=== PATIENT | female | born 1980 | race Hispanic/Latino ===

== ENCOUNTER 2017-03-15 11:57 | Emergency (ER) | payer MEDICAID ==
[2017-03-15 12:07] VITALS: BP 135/82
[2017-03-15] MEDS ORDERED: ORPHENADRINE CITRATE 30 MG/ML VIAL IM ONE (12:20)
[2017-03-15] MEDS ORDERED: KETOROLAC TROMETHAMINE 30 MG/ML VIAL IM ONE (12:20)
[2017-03-15] MEDS ORDERED: ORPHENADRINE CITRATE 30 MG/ML VIAL ONE (12:26)
[2017-03-15] MEDS ORDERED: KETOROLAC TROMETHAMINE 30 MG/ML VIAL ONE (12:26)
--- NOTE | 2017-03-15 12:27 | ERNOTE ---
Back Pain ER HPI Date of Service: 03/15/17 Presenting Symptoms: injury/pain to back Time Seen by Provider: 03/15/17 12:15 Source: patient Exam Limitations: no limitations Immunizations: IMMUNIZATION HX Immunizations Up to Date Yes History of Influenza Vaccine Yes Hx Pneumococcal Vaccination No Allergies/Adverse Reactions: Allergies No Known Allergies Allergy (Verified 03/15/17 12:06) Home Medications: HOME MEDICATIONS Etonogestrel/Ethinyl Estradiol [Nuvaring Vaginal Ring] 1 each VG ONCE 01/16/16 [ Last Taken Unknown] Cyclobenzaprine HCl [Flexeril] 10 mg PO TID PRN #30 tab 03/15/17 [Last Taken Unknown] Naproxen [Naprosyn] 500 mg PO BID PRN #60 tab 03/15/17 [Last Taken Unknown] Narrative: Pt. comes in with c/o low back pain for two weeks after she was stretching and felt a pull in her back. Pt. denies any SOB, CP, NVD, fever, recent illness, alleviating factors despite taking Ibuprofen and tylenol for pain. Pt. staes taht she had one episode of numbness for a minute after she twisted to roll onto her R side a few nights ago but denies any since. Review of Systems - Review of Systems Constitutional: Present: no symptoms reported. Absent: recent illness, fever, chills, weakness, fatigue, malaise EYE: Present: no symptoms reported ENT: Present: no symptoms reported Respiratory: Present: no symptoms reported. Absent: shortness of breath, cough , wheezing Cardiology: Present: no symptoms reported. Absent: chest pain, palpitations, edema Gastrointestinal/Abdominal: Present: no symptoms reported. Absent: nausea, vomiting, diarrhea Genitourinary: Present: no symptoms reported Musculoskeletal: Present: back pain - L5/S1 paraspinous, muscle pain - B paraspinous muscle. Absent: neck pain, joint pain, joint swelling Skin: Present: no symptoms reported Neurological: Present: no symptoms reported. Absent: headache, dizziness/light- headedness, numbness, tingling All Other Systems: All systems neg except as marked - Patient's Past Medical History Patient History - Medical: Anemia Patient History - Cardiac/Respiratory: No pertinent hx Patient History - Cancer: No Hx of Cancer Patient History - Surgical Procedures: Other Patient History - Other: None - Family History Mother Family History - Medical: No pertinent hx Family History - Cardiac/Respiratory: No pertinent hx Father Family History - Medical: No pertinent hx Family History - Cardiac/Respiratory: No pertinent hx - Social History Abuse History: No History of abuse Psych History: No pertinent hx Smoking Status: Never smoker Have you smoked in the past 12 months: No - Immunizations Immunizations Up to Date: Yes Hx Pneumococcal Vaccination: No History of Influenza Vaccine: Yes Physical Exam - Physical Exam General Appearance: Present: wd/wn, alert, no apparent distress Head Exam: Present: normal inspection, no evidence of injury Eye Exam: Normal inspection: bilateral, PERRL: bilateral, EOMI: bilateral Ears, Nose, Throat: Present: normal ENT inspection, normal pharynx Neck: Present: normal inspection, nontender. Absent: lymphadenopathy (R), lymphadenopathy (L) Respiratory: Present: no respiratory distress, normal breath sounds, no accessory muscle use, chest nontender, lungs clear Cardiovascular/Chest: Present: regular rate, rhythm, no murmur, normal peripheral pulses Back Exam: Present: normal range of motion, no CVA tenderness, no vertebral tenderness, decreased range of motion, muscle spasm - B paraspinous near L3-S1 Extremity Exam: Present: normal inspection, non-tender, normal range of motion, no edema Neurological Exam: Present: alert, oriented, normal mood/affect, no motor/ sensory deficits Skin Exam: Present: normal color, warm/dry. Absent: pallor, skin rash ED Progress - Vital Signs Patient's Vital Signs:: I have reviewed the patient's vital signs. Vital Signs: Vital Signs 03/15/17 12:03 Temperature 36.5 C Pulse Rate 105 H Respiratory 14 Rate Blood Pressure 135/82 O2 Sat by Pulse 97 Oximetry - X-Ray X-Ray #1 X-Ray: lumbosacral Interpretation: Reviewed by me X-ray Comments: L3-L5 degenerative disk disease - Progress/Reassessment Chief Complaint: Back Pain Progress:: Improved Departure Clinical Impression: Degenerative disk disease Qualifiers: Spinal region: lumbosacral Qualified Code(s): M51.37 - Other intervertebral disc degeneration, lumbosacral region Low back strain Qualifiers: Encounter type: initial encounter Qualified Code(s): S39.012A - Strain of muscle, fascia and tendon of lower back, initial encounter - Departure Disposition: Home self-care Condition: Good Instructions: Degenerative Disk Disease, Low Back Sprain With Rehab-[facility] Additional Instructions: Please follow up with primary provider in 2-3 days. Referrals: Chante Espinosa FNP [Primary Care Provider] - Prescriptions: Cyclobenzaprine HCl [Flexeril] 10 mg PO TID PRN #30 tab PRN Reason: MUSCLE SPASMS Naproxen [Naprosyn] 500 mg PO BID PRN #60 tab PRN Reason: Pain
== END 2017-03-15 13:10 | disposition home or self-care (01) ==
LOC: ER 11:57
DX: M51.37 Other intervertebral disc degeneration, lumbosacral region (principal); S39.012A Strain of muscle, fascia and tendon of lower back, initial encounter